=== PATIENT | female | born 1990 | race African-American/Black ===

== ENCOUNTER 2016-11-30 10:25 | Emergency (ER) | payer OTHER ==
[~2016-11-30] VITALS: Ht 160 cm; Wt 111.1 kg
[~2016-11-30 10:25] MED LIST: ALDOMET 250MG250 MG PO; AMLODIPINE BESY10 M1 PO; BLM PO; CEFTIN500 M1 PO; DOCUSATE SODIU100 MG PO; IBUPROFEN800 MG PO; LISINOPRIL40 MG PO; MEDROL4 M2 PO; PERCOCET MONOGRA5 MG PO; ROBITUSSIN W/CO10 ML PO; TAMIFLU 75MG75 MG PO; TRANDATE-NORMO200 MG PO; ZITHROMAX Z-PA250 M1 PO
--- NOTE | 2016-11-30 11:09 | ED GENERAL ADULT ---
History of Present Illness General Chief Complaint: General Adult Stated Complaint: SENT BY [facility] FOR EVAL OF ELEVATED BP Source: patient, old records Exam Limitations: no limitations Vital Signs & Intake/Output Vital Signs & Intake/Output Vital Signs Date Time Temp Pulse Resp B/P Pulse O2 O2 Flow FiO2 Ox Delivery Rate 11/30 1210 97.8 84 20 164/102 97 Room Air 11/30 1036 97.9 80 18 170/120 98 Room Air Allergies Coded Allergies: Penicillins (UNKNOWN 12/10/15) Reconcile Medications Amlodipine Besylate 10 MG TABLET 1 TAB PO DAILY HEART (Reported) Hydrochlorothiazide 25 MG TABLET 1 TAB PO DAILY HTN Labetalol HCl 200 MG TABLET 1 TAB PO BID HTN (Reported) Lisinopril 40 MG TABLET 1 TAB PO DAILY HTN (Reported) Triage Note: PT SENT BY [facility] FOR ELEVATED BP. PT TAKES LISINOPRIL 40 MG DAILY AND WHEN SHE WENT FOR HER APPOINTMENT THIS AM HER BP WAS ELEVATED. MANUAL BP 170/120 AT THIS TIME. OFFERS NO COMPLAINTS Triage Nurses Notes Reviewed? yes Onset: Gradual Duration: day(s): (1), constant Timing: recent history Injury Environment: home Severity: mild Severity Numbers: 3 No Modifying Factors: none Associated Symptoms: DENIES : No Patient currently breastfeeds: No HPI: 26-year-old female with history of hypertension presents sent in by her primary care physician after she was found to have elevated blood pressure during her well checkup today. The patient has a history of hypertension and has been on lisinopril for the past 2 years which she takes once a day in the morning. The patient is without any complaints she denies chest pain palpitations abdominal pain nausea vomiting, no vision changes headaches. The patient is otherwise without any complaints and states that she does not want to be here asking how long this is going to take" there are no modifying factors or associated symptoms otherwise. (DOMO DIETZ,SEVEN) Past History Travel History Traveled to [place] past 21 day No Medical History Any Pertinent Medical History? see below for history Neurological: NONE EENT: NONE Cardiovascular: hypertension Respiratory: NONE Gastrointestinal: NONE Hepatic: NONE Renal: NONE Musculoskeletal: NONE Psychiatric: NONE Endocrine: NONE Blood Disorders: NONE Cancer(s): NONE PROFESSOR OF FRENCH/Reproductive: NONE Tetanus Vaccine: 07/31/12 Surgical History Surgical History: N Psychosocial History What is your primary language [place] Tobacco Use: Never used ETOH Use: denies use Illicit Drug Use: denies illicit drug use Family History Hx Contributory? No (SEVEN HERNÁNDEZ) Review of Systems Review of Systems Constitutional: Reports: no symptoms, see HPI. All Other Systems: Reviewed and Negative Comments Review of systems: See HPI, All other systems negative. Constitutional, no chills no fever, no malaise HEENT: No visual changes no sore throat no congestion, no ear pain Cardiovascular: No chest pain , no palpitation , no orthopnea no ankle swelling Skin, no jaundice no rashes, no change in skin Respiratory: No dyspnea no cough no sputum no hemoptysis GI: No nausea no vomiting, no diarrhea, no bloating/constipation : No dysuria No hematuria, Muscle skeletal: No joint pain, no joint swelling, no back pain Neurologic: No numbness no confusion, no headache Psych: No stress Heme/endocrine: No bruising no bleeding Immunology: No lymphadenopathy (SEVEN HERNÁNDEZ) Physical Exam Physical Exam General Appearance: well developed/nourished, no apparent distress, alert, awake , comfortable Comments: Well-developed well-nourished person in no acute distress HEENT: Normal EENT exam; PERRL, EOMI, HEAD is atraumatic. moist mucous membranes. Neck: Supple, normal range of motion without pain or tenderness Back: Nontender, no CVA tenderness. Full range of motion Cardiovascular: Regular rate and rhythms no murmurs rub Respiratory: Chest nontender.There were no bony deformities, no asymmetry. No respiratory distress. Patient speaking in full complete sentences. Breath sounds clear to auscultation bilaterally: NO W/R/R Abdomen: Soft, nontender nondistended, no appreciable organomegaly. Normal bowel sounds. No rebound/guardingNo ascites. Extremity: No edema, full range of motion of extremities, normal and equal pulses bilaterally, 5 out of 5 strength noted to bilateral upper and lower extremities Neuro: Alert oriented x3, motor sensory normal, There were no obvious focal neurologic abnormalities. Skin: No appreciable rash on exposed skin, skin is warm and dry. Psych: Mood and affect is normal, memory and judgment is normal. Core Measures ACS in differential dx? No CVA/TIA Diagnosis: No Severe Sepsis Present: No Septic Shock Present: No (SEVEN HERNÁNDEZ) Progress Differential Diagnoses I considered the following diagnoses in my evaluation of the patient: Hypertension, hypertensive urgency emergency electrolyte abnormality acute kidney injury Plan of Care: Orders Procedure Date/time Status HUMAN BETA HCG SCREEN 11/30 1111 Complete CBC WITHOUT DIFFERENTIAL 11/30 1111 Complete BASIC METABOLIC PANEL 11/30 1111 Complete Laboratory Tests 11/30/16 1125: Anion Gap 8, Estimated GFR > 60, BUN/Creatinine Ratio 17.5, Glucose 163 H, Calcium 9.8, Total Beta HCG NEGATIVE, CBC w Diff NO MAN DIFF REQ, RBC 4.55, MCV 85.7, MCH 28.1, RDW 13.9, MPV 9.5, Gran % 62.3, Lymphocytes % 29.0, Monocytes % 7.6, Eosinophils % 0.8, Basophils % 0.3, Absolute Granulocytes 4.0, Absolute Lymphocytes 1.8, Absolute Monocytes 0.5, Absolute Eosinophils 0, Absolute Basophils 0, PUBS MCHC 32.8 L Discussed the patient playful her lab results need to or just a home blood pressure cuff and check it regularly. Prescription for hydrochlorothiazide was provided advised close follow-up with her primary care physician this week, continue with the lisinopril as previously directed, I advised that she return immediately if she develops any symptoms, including headache vision changes nausea vomiting abdominal pain chest pain shortness of breath or any other concerns were while checking her blood pressure remains persistently elevated. I discussed with her at leave the harms of elevated blood pressure she feels comfortable with plan cleared for discharge (SEVEN HERNÁNDEZ) Initial ED EKG: none (SEVEN HERNÁNDEZ) Departure Departure Time of Disposition: 1208 Disposition: HOME OR SELF CARE Condition: Stable Clinical Impression Primary Impression: HTN (hypertension) Referrals: ROMEO PEACOCK MD (PCP/Family) Additional Instructions: Check her blood pressure twice a day as discussed in right these numbers down, follow-up with her primary care physician this week. Continue taking her lisinopril as directed hydrochlorothiazide as directed. Return anytime sooner with any concerns or while checking her blood pressure E numbers remained persistently elevated or you have any other concerns. This prescription was sent here pharmacy. Departure Forms: Customer Survey General Discharge Information Prescriptions: Current Visit Scripts Hydrochlorothiazide 1 TAB PO DAILY #30 TAB (SEVEN HERNÁNDEZ) PA/ELECTRO MECHANICAL TECHNOLOGIST Co-Sign Statement Statement: ED Attending supervision documentation- [] I saw and evaluated the patient. I have also reviewed all the pertinent lab results and diagnostic results. I agree with the findings and the plan of care as documented in the PA's/ELECTRO MECHANICAL TECHNOLOGIST's documentation. x I have reviewed the ED Record and agree with the PA's/ELECTRO MECHANICAL TECHNOLOGIST's documentation. [] Additions or exceptions (if any) to the PAs/ELECTRO MECHANICAL TECHNOLOGIST's note and plan are summarized below: [] (ALICIA VEGA,KASSIDY) Critical Care Note Critical Care Note Critical Care Time: non-applicable (DOMO DIETZ,SEVEN)
[2016-11-30] MEDS ORDERED: LABETALOL HCL200 M1 PO (11:19)
[2016-11-30] MEDS ORDERED: LISINOPRIL40 M1 PO (11:19)
[2016-11-30 11:46] LABS: ABSOLUTE BASOPHIL COUNT 0 /CUMM (0.0-0.2); ABSOLUTE EOSINOPHIL COUNT 0 /CUMM (0.0-0.7); ABSOLUTE LYMPH COUNT 1.8 /CUMM (1.2-3.4); ABSOLUTE MONOCYTE COUNT 0.5 /CUMM (0.10-0.60); BASOPHIL % 0.3 % (0.0-2.0); EOSINOPHIL % 0.8 % (0-5); GRANULOCYTE % 62.3 % (42.2-75.2); MEAN CORPUSCULAR HGB 28.1 PG (27.0-31.0); MEAN CORPUSCULAR HGB CONC 32.8 G/DL (33.0-37.0); MEAN CORPUSCULAR VOLUME 85.7 FL (81.0-99.0); MEAN PLATELET VOLUME 9.5 FL (7.4-10.4); PLATELET COUNT 263 /CUMM (130-400); RBC DISTRIBUTION WIDTH 13.9 % (11.5-14.5); RED BLOOD CELL CT 4.55 /CUMM (4.20-5.40); WHITE BLOOD CELL COUNT 6.4 /CUMM (4.8-10.8)
[2016-11-30] MEDS ORDERED: HYDROCHLOROTHIA25 M1 PO (12:08)
[2016-11-30 12:10] VITALS: BP 164/102
== END 2016-11-30 12:13 ==
LOC: ERH 10:25
PROVIDERS: Physician Assistant Medical
DX: I10 Essential (primary) hypertension (principal)